=== PATIENT | male | born 1965 | race Caucasian/White ===

== ENCOUNTER 2018-01-06 11:27 | Emergency (ER) | payer OTHER ==
[~2018-01-06] VITALS: Ht 167.6 cm; Wt 82.6 kg
[2018-01-06 11:32] VITALS: Ht 167.6 cm; Wt 82.6 kg
[2018-01-06 14:56] VITALS: BP 129/67
== END 2018-01-06 14:56 | disposition home or self-care (01) ==
LOC: ED 11:27
DX: S22.32XA Fracture of one rib, left side, initial encounter for closed fracture (principal); S13.9XXA Sprain of joints and ligaments of unspecified parts of neck, initial encounter; S00.03XA Contusion of scalp, initial encounter; S40.212A Abrasion of left shoulder, initial encounter; Y04.8XXA Assault by other bodily force, initial encounter; Y93.89 Activity, other specified; Y92.89 Other specified places as the place of occurrence of the external cause; Y99.8 Other external cause status
CPT/HCPCS: 90715; J1885